=== PATIENT | male | born 1955 | race African-American/Black ===

== ENCOUNTER 2018-08-21 09:34 | Emergency (ER) | payer OTHER ==
[~2018-08-21] VITALS: Ht 177.8 cm; Wt 81.7 kg
[2018-08-21 10:20] LABS: ABSOLUTE NEUTROPHILS 7.9 thou/uL (1.4-8.2); BASOPHILS 0.2 % (0.0-2.0); EOSINOPHILS 0.4 % (0.0-3.0); HEMATOCRIT 33.5 % (42.0-52.0); HEMOGLOBIN 11.1 gm/dL (14.0-18.0); LYMPHOCYTES 6.6 % (24.0-44.0); MCH 33.9 pg (26.0-34.0); MCHC 33.1 g/dL (28.0-37.0); MCV 102.4 fL (80.0-100.0); MONOCYTES 6.3 % (1.0-8.0); PLATELET COUNT 487 thou/uL (150-400); POLYS 86.5 % (36.0-66.0); RBC 3.28 mil/uL (4.50-6.00); RDW 16.8 % (10.5-14.5); WBC 9.1 thou/uL (4.0-11.0)
[2018-08-21 10:33] LABS: CALCIUM 10.2 mg/dL (8.5-10.1); CREATININE 10.7 mg/dL (0.7-1.3); POTASSIUM 4.1 mmol/L (3.5-5.1)
[2018-08-21 10:42] LABS: TROPONIN-I 0.07 ng/mL (<0.06)
[2018-08-21 10:51] LABS: AMP/METHAMP Negative (Negative); BARBITURATES Negative (Negative); BENZODIAZEPINES Negative (Negative); COCAINE Negative (Negative); METHADONE Negative (Negative); OPIATES POSITIVE (Negative); PCP Negative (Negative)
[2018-08-21 14:39] VITALS: BP 103/44
--- NOTE | 2018-08-23 18:12 | EKG ---
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: : [id number] Requested By: Oz Manzanares Order Number: [id number] MD: Richard You Measurements Intervals [place] Rate: 112 P: 41 PA: 145 QRS: -6 QRSD: 89 T: 114 QT: 337 QTc: 460 Interpretive Statements Sinus tachycardia Nonspecific ST-T wave changes F right axis No previous ECG available for comparison Electronically Signed On 08-23-2018 18:12:00 CDT by Richard You [email or web address] ��������������������������������������������� <ELECTRONICALLY SIGNED> ���������������������������������������� By: Richard You MD ��������������������������������������������� 08/23/18 1812 [id number] Richard You MD /[email or web address]
== END 2018-08-21 14:41 | disposition home or self-care (01) ==
LOC: ER 09:34
PROVIDERS: Emergency Medicine
DX: I95.9 Hypotension, unspecified (principal); Z99.2 Dependence on renal dialysis; Z86.73 Personal history of transient ischemic attack (TIA), and cerebral infarction without residual deficits